=== PATIENT | male | born 1965 | race African-American/Black ===

== ENCOUNTER 2025-07-30 16:35 | Emergency (ER) | payer MEDICAID ==
[~2025-07-30] VITALS: Ht 180.3 cm; Wt 136.0 kg
[2025-07-30 16:40] VITALS: O2SAT 95
[2025-07-30] MEDS: BACITRACIN ZINC OINT UDPKT TOP ONE (17:57)
[2025-07-30] MEDS: TETANUS, DIPHTHERIA, PERTUSSIS VAC/PF 0.5ML (>10YR OLD) IM ONE (17:58)
[2025-07-30] MEDS ORDERED: BO1 TP (18:53)
[2025-07-30] MEDS ORDERED: IBUP-2030 MT (18:53)
[2025-07-30 19:13] VITALS: BP 144/82; PULSE 89; RESP 16; TEMP 36.9; O2SAT 96
== END 2025-07-30 19:14 | disposition home or self-care (01) ==
LOC: ER 16:35
DX: S62.633A Displaced fracture of distal phalanx of left middle finger, initial encounter for closed fracture (principal); S62.635A Displaced fracture of distal phalanx of left ring finger, initial encounter for closed fracture; S62.637A Displaced fracture of distal phalanx of left little finger, initial encounter for closed fracture; S01.01XA Laceration without foreign body of scalp, initial encounter; R51.9 Headache, unspecified; I10 Essential (primary) hypertension; E11.9 Type 2 diabetes mellitus without complications; W22.8XXA Striking against or struck by other objects, initial encounter; Y93.89 Activity, other specified; Y92.89 Other specified places as the place of occurrence of the external cause; Y99.8 Other external cause status
CPT/HCPCS: 73090; 73130; 70450; 70486; 90715; 12004; 96374; 99285; Z7610; 12034

== ENCOUNTER 2025-08-04 12:25 | Emergency (ER) | payer MEDICAID ==
[~2025-08-04] VITALS: Ht 193 cm; Wt 127.0 kg
[~2025-08-04 12:25] MED LIST: BO1 TP; IBUP-2030 MT
[2025-08-04 12:28] VITALS: O2SAT 98
[2025-08-04 12:38] VITALS: BP 139/85; PULSE 84; RESP 16; TEMP 36.8; O2SAT 95
== END 2025-08-04 15:21 | disposition home or self-care (01) ==
LOC: ER 12:25
DX: S62.635A Displaced fracture of distal phalanx of left ring finger, initial encounter for closed fracture (principal); E11.9 Type 2 diabetes mellitus without complications; X58.XXXA Exposure to other specified factors, initial encounter; Y93.89 Activity, other specified; Y92.89 Other specified places as the place of occurrence of the external cause; Y99.8 Other external cause status
CPT/HCPCS: 29130; 99283

== ENCOUNTER 2025-08-09 15:00 | Emergency (ER) | payer MEDICAID ==
[~2025-08-09] VITALS: Ht 193 cm; Wt 140.7 kg
[2025-08-09 15:01] VITALS: O2SAT 99
[2025-08-09 15:11] VITALS: BP 138/93; PULSE 94; RESP 18; TEMP 36.9; O2SAT 97
== END 2025-08-09 16:52 | disposition home or self-care (01) ==
LOC: ER 15:00
DX: S01.81XD Laceration without foreign body of other part of head, subsequent encounter (principal); E11.9 Type 2 diabetes mellitus without complications; X58.XXXD Exposure to other specified factors, subsequent encounter
CPT/HCPCS: 99282